=== PATIENT | male | born 1960 | race Asian ===

== ENCOUNTER 2021-12-29 09:39 | Emergency (ER) | payer OTHER, SELFPAY ==
[2021-12-29 09:53] VITALS: BP 143/91; PULSE 81; RESP 16; TEMP 37.1; O2SAT 99; BMI 25.9
--- NOTE | 2021-12-29 12:10 | ED.SKABFB ---
HPI - Skin/Abscess/Foreign Bdy General Chief complaint: Skin/Abscess/Foreign Body Stated complaint: wierd insect bite on back head, multiplying Time Seen by Provider: 12/29/21 11:41 History of Present Illness HPI narrative: Patient is a 61-year-old healthy male who presents with rash on left side posterior head. He said he is working on the yard the next day he noticed some bumps on the back with head. He then realized that the next day they were and seems to be getting worse. He has some sharp shooting pain over to his left ear. No fever or chills. [place] Related Data Previous Rx's Medication Instructions Recorded acyclovir 800 mg tablet 800 mg PO 5XD #35 tabs 12/29/21 gabapentin 300 mg capsule 300 mg PO BEDTIME #30 caps 12/29/21 hydrocodone 5 mg-acetaminophen 325 1 tab PO Q6H PRN pain #10 tabs 12/29/21 mg tablet prednisone 20 mg tablet 40 mg PO DAILY #10 tabs 12/29/21 Review of Systems Review of Systems Narrative: GENERAL: Denies chills,fever HEENT: Denies throat pain RESPIRATORY: Denies dyspnea, cough, wheezing CARDIOVASCULAR: Denies chest pain, palpitations GASTROINTESTINAL: Denies nausea, vomiting MUSCULOSKELETAL: Denies extremity pain, injury SKIN: See HPI NEUROLOGIC: Denies weakness, dizziness, headache, numbness 8 point review of systems is negative except for those stated above and HPI Exam Initial Vital Signs Initial Vital Signs: Vital Signs Temperature 98.7 F 12/29/21 09:53 Pulse Rate 81 12/29/21 09:53 Respiratory Rate 16 12/29/21 09:53 Blood Pressure 143/91 H 12/29/21 09:53 Pulse Oximetry 99 12/29/21 09:53 Oxygen Delivery Method 12/29/21 09:53 GENERAL: Alert pleasant 61-year-old male no acute distress EAR: Left ear no lesion it noted in the canal normal tympanic membranes CARDIOVASCULAR: peripheral pulses in tact, cap refill <2 sec RESPIRATORY: No respiratory distress, speaks in full sentences without difficulty EXTREMITIES: Normal range of motion, no clubbing or edema. Neurovascularly intact NEUROLOGICAL: Cranial nerves II through XII grossly intact. Normal gait and speech. SKIN: Vesicular lesions left neck, spreading over to left ear they do not cross midline. Minimal hair involvement Course Vital Signs Vital signs: Vital Signs - 8 hr // 09:53 Temperature 98.7 F Pulse Rate 81 Respiratory Rate 16 Blood Pressure 143/91 H Pulse Oximetry 99 Oxygen Delivery Method Room Air MDM - Skin/Abscess/Foreign Bdy MDM Narrative Medical decision making narrative: Patient has shingles. He has mild pain now but sometimes gets sharp shooting pain towards his ear. At this time there is no evidence of Mana Patel syndrome. Will start him on appropriate medications. Discharge Plan Departure Patient Disposition: Home Clinical Impression: Herpes zoster Activity Restrictions/Additional Instructions: *You have been diagnosed with herpes zoster *What to do: At this time is likely that you have shingles. Will likely get worse before it gets better. It takes a couple weeks for this to heal. Avoid anyone who has not had chickenpox or the shingles vaccine. *Continue to take medications as directed Acyclovir 5 times daily for 7 days Prednisone 40 mg once a day for 5 days Hydrocodone 1 tablet every 6 hours if needed for severe pain Gabapentin 300 mg at nighttime if needed for nerve pain. *Follow up with your primary care provider in 2-3 days or call [phone] *Return to ER if you should have severe pain, worsening redness, fever or any new, worsening or concerning symptoms Prescriptions: New acyclovir 800 mg tablet 800 mg PO 5XD Qty: 35 0RF Rx Instructions: space evenly during waking hours hydrocodone-acetaminophen 5-325 mg tablet 1 tab PO Q6H PRN (Reason: pain) Qty: 10 0RF gabapentin 300 mg capsule 300 mg PO BEDTIME Qty: 30 0RF prednisone 20 mg tablet 40 mg PO DAILY Qty: 10 0RF Visit Report Forms: Patient Portal/API
== END 2021-12-29 12:47 | disposition home or self-care (01) ==
PROVIDERS: Emergency Provider Emergency Medicine
DX: B02.9 Zoster without complications (principal)
CPT/HCPCS: 99281

== ENCOUNTER 2024-08-03 12:42 | Emergency (ER) | payer OTHER, SELFPAY ==
[2024-08-03 13:07] VITALS: BP 159/96; PULSE 94; RESP 18; TEMP 37.2; O2SAT 100; BMI 25.8
[2024-08-03 14:00] LABS: Influenza A - CEPHEID Flu A POSITIVE (NEGATIVE); Influenza B - CEPHEID Flu B NEGATIVE (NEGATIVE); Respiratory Syncytial Virus Negative (Negative)
[2024-08-03 14:12] LABS: COVID-19 CEPHEID 4-PLEX PCR Negative (Negative)
--- NOTE | 2024-08-03 15:17 | ED_ITS ---
<Statement entered by Jossue Alvarez, - 08/03/24 17:12> Dr. Alvarez: I was immediately available in the department for consultation. I did not actually see the patient. HPI - URI/Sore Throat General Chief Complaint: Upper Respiratory Symptoms Stated Complaint: Flu-like symptoms Time Seen by Provider: 08/03/24 15:12 Source: patient Mode of arrival: Ambulatory History of Present Illness HPI Narrative: Mr. Kumari is a pleasant 64-year-old male with no reported past medical history who presents to the emergency department for upper respiratory symptoms x 4 days. Patient reports on Wednesday he became sick with fever, cough, sinus congestion, headache. Denies any known sick contacts however his did become sick today. Reports he has been having green sputum frequently since May however cough this week has exacerbated it. Denies chest pain, shortness of breath, ear pain, smoking history, allergies, medications prior to arrival. Related Data Previous Rx's Medication Instructions Recorded acyclovir 800 mg tablet 800 mg PO 5XD #35 tabs 12/29/21 gabapentin 300 mg capsule 300 mg PO BEDTIME #30 caps 12/29/21 hydrocodone 5 mg-acetaminophen 325 1 tab PO Q6H PRN pain #10 tabs 12/29/21 mg tablet prednisone 20 mg tablet 40 mg (2 x 20 mg) PO DAILY #10 tabs 12/29/21 benzonatate 100 mg capsule 100 mg PO BID-TID PRN cough #20 08/03/24 caps doxycycline hyclate 100 mg capsule 100 mg PO BID 5 days #10 caps 08/03/24 Allergies Allergy/AdvReac Type Severity Reaction Status Date / Time No Known Drug Allergies Allergy Verified 08/03/24 13:07 Review of Systems Review of Systems ROS Unobtainable: All systems reviewed & are unremarkable except as noted in HPI and below Patient History Social History Smoking Status: Never smoker Smoking Status: Never smoker Exam Narrative Exam Narrative: GENERAL: 64 year old patient appears stated age. Well-developed patient, in no acute distress. HEAD: Atraumatic. Normocephalic. EYES: No scleral icterus. No injection or drainage. ENT: Nonerythematous TMs bilaterally. Nose without bleeding, purulent drainage. Throat without erythema, tonsillar hypertrophy or exudate. Airway patent. NECK: Trachea midline. Cervical ROM intact. CARDIOVASCULAR: Regular rate and rhythm. RESPIRATORY: ?Nonlabored respirations. ?Speaking in clear, full sentences. Frequent dry cough. Very faint coarse breath sounds left lower lobe, remainder of lung ricci clear with no wheezing. NEURO: AOx3. ?Clear speech. ?Moves all 4 extremities appropriately. SKIN: No rash or erythema of visible areas Initial Vital Signs Initial Vital Signs: Vital Signs Temperature 98.9 F 08/03/24 13:07 Pulse Rate 94 H 08/03/24 13:07 Respiratory Rate 18 08/03/24 13:07 Blood Pressure 159/96 H 08/03/24 13:07 Pulse Oximetry 100 08/03/24 13:07 Oxygen Delivery Method Room Air 08/03/24 13:07 Course Orders Ordered: ED Orders 08/03/24 13:14 Covid-19 + FLU A/B + RSV - PCR Stat 08/03/24 15:26 XR chest 2V Stat Discontinued Medications Acetaminophen (Acetaminophen 325 Mg Tablet) 650 mg PO NOW ONE Stop: 08/03/24 15:27 Last Admin: 08/03/24 15:50 Dose: 650 mg Benzonatate (Benzonatate 100 Mg Capsule) 100 mg PO NOW ONE Stop: 08/03/24 15:27 Last Admin: 08/03/24 15:51 Dose: 100 mg Ibuprofen (Ibuprofen 400 Mg Tablet) 400 mg PO NOW ONE Stop: 08/03/24 15:27 Last Admin: 08/03/24 15:51 Dose: 400 mg Vital Signs Vital signs: Vital Signs - 8 hr 08/03/24 13:07 08/03/24 15:53 Temperature 98.9 F 98.5 F Pulse Rate 94 H 97 H Respiratory Rate 18 20 Blood Pressure 159/96 H 132/86 Pulse Oximetry 100 97 Oxygen Delivery Method Room Air Room Air MDM - URI/Sore Throat Medical Records Attestation: I reviewed the patient's medical records. Lab Data Labs: Lab Results 08/03/24 Range/Units 13:14 SARS-CoV-2 (PCR) Negative (Negative) Influenza A (RT-PCR) Flu a positive H (NEGATIVE) Influenza B (RT-PCR) Flu b negative (NEGATIVE) RSV (PCR) Negative (Negative) MDM Narrative Medical decision making narrative: 64-year-old male with no reported past medical history who presents to the emergency department for upper respiratory symptoms x 4 days. Differential diagnosis includes but is not limited to pneumonia, bronchitis, viral URI, etc. On exam patient is in no acute distress, nontoxic appearing, vital signs revealing blood pressure 159/96, pulse 94, 100% oxygen on room air and temperature 98.9?, no respiratory distress. He has a frequent cough during exam, lungs are clear except for mild coarse breath sounds in left lower lobe. We will proceed with a chest x-ray, viral swab, ibuprofen Tylenol and Tessalon Perles. Viral swab positive for influenza A. Chest x-ray reveals small focus of retrocardiac consolidation concerning for pneumonia. We will treat patient with doxycycline 100 mg b.i.d. x5 days. Patient reports that his symptoms improved drastically during his emergency department stay so I recommended he continue taking ibuprofen and Tylenol if needed in addition to the prescribed medications. Recommended rest, hydration, follow up with prior care doctor for repeat chest x-ray in 1-2 months, strict ED return precautions were discussed. BP improved. He verbalized understanding of all information is agreeable to the plan. He is stable for discharge home. Discharge Plan Departure Patient Disposition: Home Clinical Impression: Influenza A Pneumonia Qualifiers: Pneumonia type: due to influenza A virus Qualified Code(s): J10.00 - Influenza due to other identified influenza virus with unspecified type of pneumonia Instructions: DI for Pneumonia -- Adult, DI for Influenza -- Adult Activity Restrictions/Additional Instructions: Thank you for coming to the emergency department. Today you tested positive for influenza a and your chest x-ray also revealed pneumonia which is a lung infection that requires antibiotics. You have been prescribed doxycycline which is an antibiotic to take twice a day for the next 5 days. You have also been prescribed benzonatate which is a cough medicine that you can take as needed. I would also like you to rest, hydrate, use ibuprofen and Tylenol for pain and follow up with your primary care doctor. Please return to the emergency department if you develop shortness of breath, chest pain, difficulty breathing or any other concerns. I do recommend that you have a repeat chest x-ray in 1-2 months with your primary care doctor to make sure the pneumonia has resolved. Please take Ibuprofen (Motrin/Advil) or Acetaminophen (Tylenol) for pain. These are available over the counter. You may take Ibuprofen 600 mg every 8 hours with food for pain. You may also take Acetaminophen 650 mg every 4-6 hours for pain. Do not exceed 3000 mg of Tylenol a day as this can cause liver damage. Do not drink alcohol with either of these medications. Please follow up with your primary care doctor within the next 2-3 days for ER follow-up. (If you do not have a PCP you can call [phone]. ?to schedule an appointment with an [facility] Primary Care Provider) IF YOU DEVELOP ANY NEW OR WORSENING SYMPTOMS, RETURN TO THE ER! Please read the attached instructions, they highlight more specific treatments and interventions for you at home. Thank you for letting me participate in your care, Fior Sanchez PA-C Prescriptions: New doxycycline hyclate 100 mg capsule 100 mg PO BID 5 Days Qty: 10 0RF benzonatate 100 mg capsule 100 mg PO BID-TID PRN (Reason: cough) Qty: 20 0RF No Action acyclovir 800 mg tablet 800 mg PO 5XD Qty: 35 0RF Rx Instructions: space evenly during waking hours hydrocodone-acetaminophen 5-325 mg tablet 1 tab PO Q6H PRN (Reason: pain) Qty: 10 0RF gabapentin 300 mg capsule 300 mg PO BEDTIME Qty: 30 0RF prednisone 20 mg tablet 40 mg PO DAILY Qty: 10 0RF Stand Alone Forms: Patient Portal/API/Survey
--- NOTE | 2024-08-03 15:26 | DI.RAD.S_ITS ---
PROCEDURE: XR CHEST 2V INDICATIONS: cough; flu x 5 days, sputum x 2 months TECHNIQUE: 2 views of the chest were acquired. COMPARISON: None. FINDINGS: Surgical changes and devices: None. Lungs and pleura: Small focus of retrocardiac consolidation. Mediastinum: Mediastinal contours are normal. Heart size is normal. Bones and chest wall: No suspicious bony abnormalities. Soft tissues appear unremarkable. IMPRESSION: Small focus of retrocardiac consolidation concerning for pneumonia. Recommend follow-up in 1-2 months with chest x-ray to ensure resolution. Dictated by: Evangelist Daugherty M.D. on 08/03/2024 at 16:03 Approved by: Evangelist Daugherty M.D. on 08/03/2024 at 16:03
[2024-08-03] MEDS: ACETAMINOPHEN 325 MG TABLET 650 MG PO (15:50)
[2024-08-03] MEDS: IBUPROFEN 400 MG TABLET PO (15:51)
[2024-08-03] MEDS: BENZONATATE 100 MG CAPSULE PO (15:51)
[2024-08-03 15:53] VITALS: BP 132/86; PULSE 97; RESP 20; TEMP 36.9; O2SAT 97
[2024-08-03 16:45] VITALS: BP 128/70; PULSE 88; RESP 18; TEMP 37.2; O2SAT 99
== END 2024-08-03 16:48 | disposition home or self-care (01) ==
PROVIDERS: Student in an Organized Health Care Education/Training Program; Emergency Provider Physician Assistant
DX: J10.00 Influenza due to other identified influenza virus with unspecified type of pneumonia (principal); R05.9 Cough, unspecified; R51.9 Headache, unspecified
CPT/HCPCS: 0241U; 71046; 99283